=== PATIENT | female | born 2000 | race Caucasian/White ===

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

== ENCOUNTER → 2021-10-09 | Outpatient (CLI) | payer OTHER ==
--- NOTE | 2021-10-09 09:35 | US ---
EXAMINATION TYPE: Transabdominal DATE OF EXAM: 10/09/2021 9:28 AM COMPARISON: NONE CLINICAL HISTORY: R10.9 ABD PAIN. Patient just found out she was today. EMS transfer from [facility] with patient being transferred back. EXAM PERFORMED: Transvaginal (TV) and Transabdominal (TA) EXAM MEASUREMENTS: GESTATIONAL AGE / DATING Physician Established: Not yet established Dates by LMP: LMP unknown Dates by First Scan: No previous this is first scan Dates by Current Scan for: ( 6 weeks/0 days) EDC: 06/04/2022 MATERNAL ANATOMY Uterus: 10.0 x 6.1 x 4.6 cm Right Ovary: 3.3 x 2.3 x 2.0 cm Left Ovary: 2.8 x 1.5 x 1.8 cm Post CDS / Adnexa: no free fluid Presence of free fluid: no Presence of corpus luteal cyst: no Presence of subchorionic bleed: no GESTATION / SURVEY CRL: 0.4 cm (6 weeks/0 days) MSD: seen, not measured Yolk Sac (normal less than 6mm): 1.4 mm Heart Rate: 114 bpm Rhythm: Normal IUP: Viable IUP Date of LMP: Unknown, [id number] Beta HcG (if available): Not available at this time Single live IUP measured 6 weeks 0 days. IMPRESSION: Viable intrauterine 6 weeks 0 days heart rate of 114 bpm.
== END | disposition home or self-care (01) ==
LOC: RADUSWWP 08:55
PROVIDERS: ATTEND Emergency Medicine
DX: O26.891 Other specified pregnancy related conditions, first trimester (principal); R10.9 Unspecified abdominal pain; Z3A.01 Less than 8 weeks gestation of pregnancy
CPT/HCPCS: 76801; 76817

== ENCOUNTER 2022-03-10 10:25 | Emergency (ER) | payer OTHER ==
[2022-03-10 10:39] VITALS: BP 107/67; PULSE 96; RESP 18; TEMP 98
--- NOTE | 2022-03-10 11:08 | ED ---
General Adult HPI - General Chief complaint: Skin/Abscess/Foreign Body Stated complaint: jaw swelling Time Seen by Provider: 03/10/22 10:53 Source: patient, family Mode of arrival: ambulatory Limitations: no limitations - History of Present Illness Initial comments: Dictation was produced using [employer] dictation software. please excuse any grammatical, word or spelling errors. Chief Complaint: 22-year-old female presents with 1-2 days of left- sided oral pain History of Present Illness: Patient's 22-year-old female presents emergency department for oral pain. Patient states that it she has pain to her lower oral jaw on the left side. Patient denies any trouble swallowing. No fever or chills or night sweats. Family thinks that it might be a ingrowing wisdom tooth. No constitutional symptoms. The ROS documented in this emergency department record has been reviewed and confirmed by me. Those systems with pertinent positive or negative responses have been documented in the HPI. All other systems are other negative and/or noncontributory. PHYSICAL EXAM: General Impression: Alert and oriented x3, not in acute distress HEENT: Normocephalic atraumatic, extra-ocular movements intact, pupils equal and reactive to light bilaterally, mucous membranes moist. Cardiovascular: Heart regular rate and rhythm Oral exam: Good dentition, no abnormal mucosa to the buccal or gingival, posterior oropharynx is unremarkable Chest: Able to complete full sentences, no retractions, no tachypnea Musculoskeletal: Pulses present and equal in all extremities, no peripheral edema Motor: no focal deficits noted Neurological: CN II-XII grossly intact, no focal motor or sensory deficits noted Skin: Intact with no visualized rashes Psych: Normal affect and mood ED course: 22-year-old female presents emergency department for acute onset oral pain. At this point physical examination is benign. Signs upon arrival are wit hin acceptable limits. No abnormal oral exam findings to suggest obvious source of patient's oral pain. Patient prescription for antibiotics for perhaps dental pain. She is advised follow-up with dentist. Critical Care: no Critical Care time: n/a - Related Data Previous Rx's Medication Instructions Recorded Amoxic-Pot Clav 875-125Mg 1 tab PO BID 10 Days #20 tab 03/10/22 [Augmentin 875-125] Allergies Allergy/AdvReac Type Severity Reaction Status Date / Time Latex, Natural Rubber Allergy Unknown Verified 03/10/22 10:39 Review of Systems ROS Statement: Those systems with pertinent positive or pertinent negative responses have been documented in the HPI. ROS Other: All systems not noted in ROS Statement are negative. Past Medical History Additional Past Medical History / Comment(s): spina difada History of Any Multi-Drug Resistant Organisms: None Reported Past Surgical History: Tonsillectomy Past Psychological History: No Psychological Hx Reported Smoking Status: Never smoker Past Alcohol Use History: None Reported, Occasional Past Drug Use History: None Reported General Exam Limitations: no limitations Course Vital Signs 03/10/22 10:36 Temperature 98 F Pulse Rate 96 Respiratory 18 Rate Blood Pressure 107/67 O2 Sat by Pulse 99 Oximetry Disposition Clinical Impression: Oral pain Disposition: HOME SELF-CARE Condition: Good Instructions (If sedation given, give patient instructions): Amoxicillin/Clavulanate Potassium (By mouth) Additional Instructions: Follow-up with dentist for oral pain. Prescriptions: Amoxic-Pot Clav 875-125Mg [Augmentin 875-125] 1 tab PO BID 10 Days #20 tab Is patient prescribed a controlled substance at d/c from ED?: No Referrals: None,Stated [Primary Care Provider] - 1-2 days Time of Disposition: 11:08
== END 2022-03-10 11:22 | disposition home or self-care (01) ==
LOC: EC 10:25
DX: O99.611 Diseases of the digestive system complicating pregnancy, first trimester (principal); K08.89 Other specified disorders of teeth and supporting structures; Z91.040 Latex allergy status; Z3A.00 Weeks of gestation of pregnancy not specified
CPT/HCPCS: 99282

== ENCOUNTER 2022-07-05 13:49 | Emergency (ER) | payer OTHER ==
[2022-07-05 14:28] LABS: Appearance,Urine Clear (Clear); Bilirubin,Urine Negative (Negative); Blood,Urine Negative (Negative); Color,Urine Light Yellow; Glucose,Urine (UA) Negative (Negative); Ketones,Urine Negative (Negative); Leukocyte Esterase,Urine Negative (Negative); Nitrite,Urine Negative (Negative); PH, Urine 5.5 (5.0-8.0); Protein,Urine Negative (Negative); Specific Gravity,Urine 1.011 (1.001-1.035); Urobilinogen,Urine <2.0 mg/dL (<2.0)
[2022-07-05] MEDS ORDERED: ACETAMINOPHEN TAB 500 MG TAB PO STA (14:50)
--- NOTE | 2022-07-05 14:55 | ED ---
Female Urogenital HPI - General Chief complaint: Urogenital Stated complaint: UTI Time Seen by Provider: 07/05/22 14:05 Source: patient Mode of arrival: ambulatory Limitations: no limitations - History of Present Illness Initial comments: [id number] female who presents to the emergency department for burning with urination. Started 3 days ago. Patient reports history of UTI states this feels similar. She denies fever, chills, back pain, abdominal pain nausea, vomiting, vaginal discharge. No concern for sexually transmitted infections. Patient is 3 weeks . She had a vaginal delivery with Dr. Walker. She did have a vaginal tear otherwise no complications. She has been using a topical in reliever for this pain which she was given in the hospital. - Related Data Previous Rx's Medication Instructions Recorded Ibuprofen [Motrin] 800 mg PO Q8HR PRN #30 tab 07/05/22 Phenazopyridine [Pyridium] 200 mg PO TID PRN #6 tablet 07/05/22 Allergies Allergy/AdvReac Type Severity Reaction Status Date / Time Latex, Natural Rubber Allergy Unknown Verified 07/05/22 14:36 smoke Allergy Dyspnea Uncoded 07/05/22 14:36 Review of Systems ROS Statement: Those systems with pertinent positive or pertinent negative responses have been documented in the HPI. ROS Other: All systems not noted in ROS Statement are negative. Past Medical History Additional Past Medical History / Comment(s): spinal bifida History of Any Multi-Drug Resistant Organisms: None Reported Past Surgical History: Tonsillectomy Past Anesthesia/Blood Transfusion Reactions: No Reported Reaction Past Psychological History: No Psychological Hx Reported Smoking Status: Never smoker Past Alcohol Use History: None Reported Past Drug Use History: None Reported General Exam Limitations: no limitations General appearance: alert, in no apparent distress Head exam: Present: atraumatic, normocephalic, normal inspection Respiratory exam: Present: normal lung sounds bilaterally. Absent: respiratory distress, wheezes, rales, rhonchi, stridor Cardiovascular Exam: Present: regular rate, normal rhythm, normal heart sounds. Absent: systolic murmur, diastolic murmur, rubs, gallop, clicks External exam: Present: other (erythema and swelling to urethra) Neurological exam: Present: alert, oriented X3, CN II-XII intact Psychiatric exam: Present: normal affect, normal mood Skin exam: Present: warm, dry, intact, normal color. Absent: rash Course Vital Signs 07/05/22 07/05/22 13:58 15:20 Temperature 97.8 F 98.4 F Pulse Rate 92 72 Respiratory 20 14 Rate Blood Pressure 119/71 112/68 O2 Sat by Pulse 99 99 Oximetry Medical Decision Making - Medical Decision Making Was pt. sent in by a medical professional or institution ([facility], OSTEOLOGIST, urgent care, hospital, or intermediate...) When possible be specific @ -No Did you speak to anyone other than the patient for history (EMS, parent, family, police, friend...)? What history was obtained from this source @ -No Did you review nursing and triage notes (agree or disagree)? Why? @ -I reviewed and agree with nursing and triage notes Were old charts reviewed (outside hosp., previous admission, EMS record, old EKG, old radiological studies, urgent care reports/EKG's, intermediate records)? Report findings @ -No old charts were reviewed Differential Diagnosis (chest pain, altered mental status, abdominal pain women, abdominal pain men, vaginal bleeding, weakness, fever, dyspnea, syncope, headache, dizziness, GI bleed, back pain, seizure, CVA, palpatations, mental health)? @ Urinary tract infection, UTI, urethritis EKG interpreted by me (3pts min.). @ -As above X-rays interpreted by me (1pt min.). @ -None done CT interpreted by me (1pt min.). @ -None done U/S interpreted by me (1pt. min.). @ -None done What testing was considered but not performed or refused? (CT, X-rays, U/S, labs)? Why? @ -None What meds were considered but not given or refused? Why? @ -None Did you discuss the management of the patient with other professionals (professionals i.e. [facility], OSTEOLOGIST, lab, RT, psych nurse, social media manager, livery car driver, teacher, associate loan officer, housing case manager)? Give summary @ -No Was smoking cessation discussed for >3mins.? @ -No Was critical care preformed (if so, how long)? @ -No Were there social determinants of health that impacted care today? How? (Homelessness, low income, unemployed, alcoholism, drug addiction, transportation, low edu. Level, literacy, decrease access to med. care, nursing home, rehab)? @ -No Was there de-escalation of care discussed even if they declined (Discuss DNR or withdrawal of care, Hospice)? DNR status @ -No What co-morbidities impacted this encounter? (DM, HTN, Smoking, COPD, CAD, Cancer, CVA, ARF, Chemo, Hep., AIDS, mental health diagnosis, sleep apnea, morbid obesity)? @ -None Was patient admitted / discharged? Hospital course, mention meds given and route, prescriptions, significant lab abnormalities, going to OR and other pertinent info. @ -Patient presenting with dysuria. Urinalysis does not indicate any infection. Patient does have swelling and erythema to the urethra. There is concern for urethritis. Patient declines any STI testing. No systemic symptoms. Symptoms possibly related to irritation urethritis. Patient will stop using topical pain reliever. Discussed symptomatic management at home. Patient to follow-up with Dr. Crump Undiagnosed new problem with uncertain prognosis? @ -No Drug Therapy requiring intensive monitoring for toxicity (Heparin, Nitro, Insulin, Cardizem)? @ -[No] Were any procedures done? @ -[No] Diagnosis/symptom? @ -urethritis Acute, or Chronic, or Acute on Chronic? @ -acute Uncomplicated (without systemic symptoms) or Complicated (systemic symptoms)? @ -uncomplicated Side effects of treatment? @ -[No] Exacerbation, Progression, or Severe Exacerbation? @ -[No] Poses a threat to life or bodily function? How? (Chest pain, [place], IA, pneumonia, PE, COPD, DKA, ARF, appy, cholecystitis, CVA, Diverticulitis, Homicidal, Suicidal, threat to staff... and all critical care pts) @ -[No] Dr. Echevarria is my attenind - Lab Data Lab Results 07/05/22 Range/Units 14:06 Urine Color Light Yellow Urine Appearance Clear (Clear) Urine pH 5.5 (5.0-8.0) Ur Specific [place] 1.011 (1.001-1.035) Urine Protein Negative (Negative) Urine Glucose (UA) Negative (Negative) Urine Ketones Negative (Negative) Urine Blood Negative (Negative) Urine Nitrite Negative (Negative) Urine Bilirubin Negative (Negative) Urine Urobilinogen <2.0 (<2.0) mg/dL Ur Leukocyte Esterase Negative (Negative) Disposition Clinical Impression: Urethritis Disposition: HOME SELF-CARE Condition: Good Instructions (If sedation given, give patient instructions): Dysuria (ED) Additional Instructions: Take medication as directed. Avoid using chemicals that may irritate your urethra. Sitz baths in warm water 2-3 times a day may help symptoms. Follow-up with Dr. Walker in one to 2 days. Return to emergency department if you experience new, concerning, or worsening symptoms. Prescriptions: Ibuprofen [Motrin] 800 mg PO Q8HR PRN #30 tab PRN Reason: Pain Phenazopyridine [Pyridium] 200 mg PO TID PRN #6 tablet PRN Reason: Pain Is patient prescribed a controlled substance at d/c from ED?: No Referrals: None,Stated [Primary Care Provider] - 1-2 days
[2022-07-05] MEDS ORDERED: PHENAZOPYRIDINE 200 MG TAB PO ONE (15:05)
[2022-07-05 15:25] VITALS: BP 112/68; PULSE 72; RESP 14; TEMP 98.4
== END 2022-07-05 15:26 | disposition home or self-care (01) ==
LOC: EC 13:49
DX: N34.2 Other urethritis (principal); Z91.040 Latex allergy status; Z88.8 Allergy status to other drugs, medicaments and biological substances
CPT/HCPCS: 81003; 99283

== ENCOUNTER 2022-07-18 12:54 | Emergency (ER) | payer OTHER ==
[2022-07-18 13:06] VITALS: BP 111/69
[2022-07-18 14:22] LABS: Appearance,Urine Cloudy (Clear); Bacteria,Urine Rare /hpf; Bilirubin,Urine Negative (Negative); Blood,Urine Negative (Negative); Color,Urine Dark Yellow; Glucose,Urine (UA) Negative (Negative); Ketones,Urine Negative (Negative); Leukocyte Esterase,Urine Large (Negative); Mucus,Urine Rare /hpf; Nitrite,Urine Negative (Negative); PH, Urine 5.5 (5.0-8.0); Protein,Urine Negative (Negative); RBC,Urine 4 /hpf (0-5); Specific Gravity,Urine 1.015 (1.001-1.035); Squamous Epithelial Cell,Urine 6 /hpf (0-4); Urobilinogen,Urine <2.0 mg/dL (<2.0); WBC,Urine 35 /hpf (0-5)
--- NOTE | 2022-07-18 14:42 | ED ---
General Adult HPI - General Chief complaint: Back Pain/Injury Stated complaint: Back Pain Time Seen by Provider: 07/18/22 13:17 Source: patient, RN notes reviewed Mode of arrival: ambulatory Limitations: no limitations - History of Present Illness Initial comments: 22 year old female with no significant past medical history presents to the emergency department with dysuria x 2 days. Patient has been taking Azo with some mild relief of her symptoms. She denies any fevers, chills, nausea, vomiting, flank pain. She denies any vaginal bleeding, she is reporting some low back pain associated with the symptoms but she has been taking Motrin for. - Related Data Previous Rx's Medication Instructions Recorded Ibuprofen [Motrin] 800 mg PO Q8HR PRN #30 tab 07/05/22 Phenazopyridine [Pyridium] 200 mg PO TID PRN #6 tablet 07/05/22 Cephalexin [Keflex] 500 mg PO Q6HR #40 cap 07/18/22 Allergies Allergy/AdvReac Type Severity Reaction Status Date / Time Latex, Natural Rubber Allergy Unknown Verified 07/18/22 13:06 smoke Allergy Dyspnea Uncoded 07/18/22 13:06 Review of Systems ROS Statement: Those systems with pertinent positive or pertinent negative responses have been documented in the HPI. ROS Other: All systems not noted in ROS Statement are negative. Past Medical History Additional Past Medical History / Comment(s): spinal bifida, History of Any Multi-Drug Resistant Organisms: None Reported Past Surgical History: Tonsillectomy Past Anesthesia/Blood Transfusion Reactions: No Reported Reaction Past Psychological History: No Psychological Hx Reported Smoking Status: Never smoker Past Alcohol Use History: Occasional Past Drug Use History: None Reported General Exam Limitations: no limitations General appearance: alert, in no apparent distress Course Vital Signs 07/18/22 07/18/22 13:03 15:18 Temperature 97.5 F L 97.9 F Pulse Rate 73 82 Respiratory 18 14 Rate Blood Pressure 111/69 O2 Sat by Pulse 97 Oximetry Medical Decision Making - Medical Decision Making Was pt. sent in by a medical professional or institution (, PA, TOURING PRODUCTION MANAGER, urgent care, hospital, or detention...) When possible be specific @ -[No] Did you speak to anyone other than the patient for history (EMS, parent, family, police, friend...)? What history was obtained from this source @ -[No] Did you review nursing and triage notes (agree or disagree)? Why? @ -[I reviewed and agree with nursing and triage notes] Were old charts reviewed (outside hosp., previous admission, EMS record, old EKG, old radiological studies, urgent care reports/EKG's, detention records)? Report findings @ -[No old charts were reviewed] Differential Diagnosis (chest pain, altered mental status, abdominal pain women, abdominal pain men, vaginal bleeding, weakness, fever, dyspnea, syncope, headache, dizziness, GI bleed, back pain, seizure, CVA, palpatations, mental health, musculoskeletal)? @ -[not applicable] EKG interpreted by me (3pts min.). @ -[As above] X-rays interpreted by me (1pt min.). @ -[None done] CT interpreted by me (1pt min.). @ -[None done] U/S interpreted by me (1pt. min.). @ -[None done] What testing was considered but not performed or refused? (CT, X-rays, U/S, labs)? Why? @ -[None] What meds were considered but not given or refused? Why? @ -[None] Did you discuss the management of the patient with other professionals (professionals i.e. , PA, TOURING PRODUCTION MANAGER, lab, RT, psych nurse, social sciences professor, lockmaker, teacher, light armored reconnaissance officer, dependency case manager)? Give summary @ -[No] Was smoking cessation discussed for >3mins.? @ -[No] Was critical care preformed (if so, how long)? @ -[No] Were there social determinants of health that impacted care today? How? (Homelessness, low income, unemployed, alcoholism, drug addiction, transportation, low edu. Level, literacy, decrease access to med. care, skilled nursing, rehab)? @ -[No] Was there de-escalation of care discussed even if they declined (Discuss DNR or withdrawal of care, Hospice)? DNR status @ -[No] What co-morbidities impacted this encounter? (DM, HTN, Smoking, COPD, CAD, Cancer, CVA, ARF, Chemo, Hep., AIDS, mental health diagnosis, sleep apnea, morbid obesity)? @ -[None] Was patient admitted / discharged? Hospital course, mention meds given and route, prescriptions, significant lab abnormalities, going to OR and other pertinent info. @ -Discharged. This is a 22-year-old female presents to the emergency department with UTI. Patient had a thorough history and physical exam performed heart rate regular rate and rhythm, lungs are clear to auscultation bilaterally. Abdomen is soft and non-tender. There are no focal deficits noted upon exam. UA consistent with UTI. I discussed at length with the patient who verbalized understanding and is requesting discharge. Return precautions were discussed. Patient discharged in stable condition. Case discussed with Dr. Ambrocio who agrees with plan of care Undiagnosed new problem with uncertain prognosis? @ -[No] Drug Therapy requiring intensive monitoring for toxicity (Heparin, Nitro, Insulin, Cardizem)? @ -[No] Were any procedures done? @ -[No] Diagnosis/symptom? @ -urinary tract infection Acute, or Chronic, or Acute on Chronic? @ -acute Uncomplicated (without systemic symptoms) or Complicated (systemic symptoms)? @ -uncomplicated Side effects of treatment? @ -[No] Exacerbation, Progression, or Severe Exacerbation? @ -[No] Poses a threat to life or bodily function? How? (Chest pain, [place], [place], pneumonia, PE, COPD, DKA, ARF, appy, cholecystitis, CVA, Diverticulitis, Homicidal, Suicidal, threat to staff... and all critical care pts) @ -low likelihood - Lab Data Lab Results 07/18/22 Range/Units 13:45 Urine Color Dark Yellow Urine Appearance Cloudy H (Clear) Urine pH 5.5 (5.0-8.0) Ur Specific [place] 1.015 (1.001-1.035) Urine Protein Negative (Negative) Urine Glucose (UA) Negative (Negative) Urine Ketones Negative (Negative) Urine Blood Negative (Negative) Urine Nitrite Negative (Negative) Urine Bilirubin Negative (Negative) Urine Urobilinogen <2.0 (<2.0) mg/dL Ur Leukocyte Esterase Large H (Negative) Urine RBC 4 (0-5) /hpf Urine WBC 35 H (0-5) /hpf Ur Squamous Epith Cells 6 H (0-4) /hpf Urine Bacteria Rare H (None) /hpf Urine Mucus Rare H (None) /hpf Disposition Clinical Impression: Urinary tract infection Disposition: HOME SELF-CARE Condition: Stable Instructions (If sedation given, give patient instructions): Urinary Tract Infection in Women (ED) Additional Instructions: Please return to the nearest emergency department if symptoms worsen or persist Prescriptions: Cephalexin [Keflex] 500 mg PO Q6HR #40 cap Is patient prescribed a controlled substance at d/c from ED?: No Referrals: None,Stated [Primary Care Provider] - 1-2 days Time of Disposition: 14:40
[2022-07-18 15:19] VITALS: PULSE 82; RESP 14; TEMP 97.9
== END 2022-07-18 15:29 | disposition home or self-care (01) ==
LOC: EC 12:54
DX: N39.0 Urinary tract infection, site not specified (principal); Z91.040 Latex allergy status; Z91.048 Other nonmedicinal substance allergy status
CPT/HCPCS: 81001; 87086; 99283

== ENCOUNTER 2023-01-26 19:19 | Emergency (ER) | payer OTHER ==
[2023-01-26 20:28] LABS: Appearance,Urine Clear (Clear); Bilirubin,Urine Negative (Negative); Blood,Urine Negative (Negative); Color,Urine Yellow; Glucose,Urine (UA) Negative (Negative); Ketones,Urine Negative (Negative); Leukocyte Esterase,Urine Moderate (Negative); Mucus,Urine Few /hpf; Nitrite,Urine Negative (Negative); PH, Urine 5.5 (5.0-8.0); Protein,Urine Trace (Negative); RBC,Urine 10 /hpf (0-5); Specific Gravity,Urine 1.026 (1.001-1.035); Squamous Epithelial Cell,Urine 2 /hpf (0-4); WBC,Urine 32 /hpf (0-5)
[2023-01-26] MEDS ORDERED: SULFAMETHOX-TMP 800-160MG 1 EACH TAB PO STA (20:49)
[2023-01-26] MEDS ORDERED: PHENAZOPYRIDINE 100 MG TAB PO STA (20:49)
--- NOTE | 2023-01-26 20:49 | ED ---
Female Urogenital HPI - General Chief complaint: Urogenital Stated complaint: Uti Time Seen by Provider: 01/26/23 19:44 Source: patient Mode of arrival: ambulatory Limitations: no limitations - History of Present Illness Initial comments: 23-year-old female presenting with chief complaint of dysuria. Patient has been having dysuria as well as urgency and frequency for the last 4 days. She was seen at a different facility 3 days ago and started on Macrobid, but she states that her symptoms have only worsened. She admits to suprapubic pressure. No flank pain, fever, chills, nausea, vomiting, vaginal discharge. She denies any concern for STI's. - Related Data Previous Rx's Medication Instructions Recorded Ibuprofen [Motrin] 800 mg PO Q8HR PRN #30 tab 07/05/22 Phenazopyridine [Pyridium] 200 mg PO TID PRN #6 tablet 07/05/22 Cephalexin [Keflex] 500 mg PO Q6HR #40 cap 07/18/22 Phenazopyridine [Pyridium] 100 mg PO TID #6 tablet 01/26/23 Sulfamethox-Tmp 800-160Mg [Bactrim 1 tab PO Q12HR 7 Days #14 tab 01/26/23 DS 800-160 mg] Allergies Allergy/AdvReac Type Severity Reaction Status Date / Time Latex, Natural Rubber Allergy Unknown Verified 01/26/23 19:34 smoke Allergy Dyspnea Uncoded 01/26/23 19:34 Review of Systems ROS Statement: Those systems with pertinent positive or pertinent negative responses have been documented in the HPI. ROS Other: All systems not noted in ROS Statement are negative. Past Medical History Additional Past Medical History / Comment(s): spinal bifida, History of Any Multi-Drug Resistant Organisms: None Reported Past Surgical History: Tonsillectomy Past Anesthesia/Blood Transfusion Reactions: No Reported Reaction Past Psychological History: No Psychological Hx Reported Smoking Status: Never smoker Past Alcohol Use History: Occasional Past Drug Use History: None Reported General Exam Limitations: no limitations General appearance: alert, in no apparent distress Head exam: Present: atraumatic, normocephalic, normal inspection Eye exam: Present: normal appearance, EOMI Neck exam: Present: normal inspection, full ROM Respiratory exam: Absent: respiratory distress GI/Abdominal exam: Present: soft, tenderness (Suprapubic). Absent: distended, guarding, rebound, rigid Neurological exam: Present: alert, oriented X3 Psychiatric exam: Present: normal affect, normal mood Skin exam: Present: warm, dry, intact, normal color. Absent: rash Course Vital Signs 01/26/23 01/26/23 19:31 21:17 Temperature 98.4 F 98.7 F Pulse Rate 89 84 Respiratory 18 16 Rate Blood Pressure 143/91 126/74 O2 Sat by Pulse 99 100 Oximetry Medical Decision Making - Medical Decision Making Was pt. sent in by a medical professional or institution (, EPI, EXTRACTOR OPERATOR HELPER, urgent care, hospital, or senior living...) When possible be specific @ -No Did you speak to anyone other than the patient for history (EMS, parent, family, police, friend...)? What history was obtained from this source @ -No Did you review nursing and triage notes (agree or disagree)? Why? @ -I reviewed and agree with nursing and triage notes Were old charts reviewed (outside hosp., previous admission, EMS record, old EKG, old radiological studies, urgent care reports/EKG's, senior living records)? Report findings @ -No old charts were reviewed Differential Diagnosis (chest pain, altered mental status, abdominal pain women, abdominal pain men, vaginal bleeding, weakness, fever, dyspnea, syncope, headache, dizziness, GI bleed, back pain, seizure, CVA, palpatations, mental health, musculoskeletal)? @ -Differential includes UTI, STI, candidiasis, this is not an all inclusive list EKG interpreted by me (3pts min.). @ -As above X-rays interpreted by me (1pt min.). @ -None done CT interpreted by me (1pt min.). @ -None done U/S interpreted by me (1pt. min.). @ -None done What testing was considered but not performed or refused? (CT, X-rays, U/S, labs)? Why? @ -None What meds were considered but not given or refused? Why? @ -None Did you discuss the management of the patient with other professionals (professionals i.e. EPI Leach, EXTRACTOR OPERATOR HELPER, lab, RT, psych nurse, social media analyst, supervisor customer services, teacher, retail loan officer, outsole caser)? Give summary @ -No Was smoking cessation discussed for >3mins.? @ -No Was critical care preformed (if so, how long)? @ -No Were there social determinants of health that impacted care today? How? (Homelessness, low income, unemployed, alcoholism, drug addiction, transportation, low edu. Level, literacy, decrease access to med. care, detention, rehab)? @ -No Was there de-escalation of care discussed even if they declined (Discuss DNR or withdrawal of care, Hospice)? DNR status @ -No What co-morbidities impacted this encounter? (DM, HTN, Smoking, COPD, CAD, Cancer, CVA, ARF, Chemo, Hep., AIDS, mental health diagnosis, sleep apnea, morbid obesity)? @ -None Was patient admitted / discharged? Hospital course, mention meds given and route, prescriptions, significant lab abnormalities, going to OR and other pertinent info. @ -23-year-old female presenting with chief complaint of UTI symptoms. She was started on Macrobid 3 days ago but her symptoms have continued to worsen. Phy sical exam is conducted. Urine shows 10 rbc's and 32 WBCs. Negative hCG. Patient will be switched from Macrobid to Bactrim. Urine is sent for culture. Patient is instructed to follow-up with her PCP. Provided with a prescription for Pyridium. Follow-up with PCP. Report back to ER with any new or worsening symptoms. Discussed return parameters and answered all questions. Patient conveyed verbal understanding and agreed to the plan. I discussed this case in detail with my attending Dr. Lopez Undiagnosed new problem with uncertain prognosis? @ -No Drug Therapy requiring intensive monitoring for toxicity (Heparin, Nitro, Insulin, Cardizem)? @ -No Were any procedures done? @ -No Diagnosis/symptom? @ -UTI Acute, or Chronic, or Acute on Chronic? @ -Acute Uncomplicated (without systemic symptoms) or Complicated (systemic symptoms)? @ -Uncomplicated Side effects of treatment? @ -No Exacerbation, Progression, or Severe Exacerbation? @ -No Poses a threat to life or bodily function? How? (Chest pain, [place], [place], pneumonia, PE, COPD, DKA, ARF, appy, cholecystitis, CVA, Diverticulitis, Homicidal, Suicidal, threat to staff... and all critical care pts) @ -No - Lab Data Lab Results 01/26/23 01/26/23 Range/Units 20:05 20:05 Urine Color Yellow Urine Appearance Clear (Clear) Urine pH 5.5 (5.0-8.0) Ur Specific [place] 1.026 (1.001-1.035) Urine Protein Trace H (Negative) Urine Glucose (UA) Negative (Negative) Urine Ketones Negative (Negative) Urine Blood Negative (Negative) Urine Nitrite Negative (Negative) Urine Bilirubin Negative (Negative) Urine Urobilinogen 4.0 (<2.0) mg/dL Ur Leukocyte Esterase Moderate H (Negative) Urine RBC 10 H (0-5) /hpf Urine WBC 32 H (0-5) /hpf Ur Squamous Epith Cells 2 (0-4) /hpf Urine Mucus Few H (None) /hpf Urine HCG, Qual Not Detected (Not Detectd) Disposition Clinical Impression: Urinary tract infection Disposition: HOME SELF-CARE Condition: Good Instructions (If sedation given, give patient instructions): Urinary Tract Infection in Women (ED) Additional Instructions: Follow-up with PCP. Report back to ER with any new or worsening symptoms. Prescriptions: Sulfamethox-Tmp 800-160Mg [Bactrim DS 800-160 mg] 1 tab PO Q12HR 7 Days #14 tab Phenazopyridine [Pyridium] 100 mg PO TID #6 tablet Is patient prescribed a controlled substance at d/c from ED?: No Referrals: None,Stated [Primary Care Provider] - 1-2 days Time of Disposition: 20:49
[2023-01-26 21:20] VITALS: BP 126/74; PULSE 84; RESP 16; TEMP 98.7
== END 2023-01-26 21:19 | disposition home or self-care (01) ==
LOC: EC 19:19
DX: N39.0 Urinary tract infection, site not specified (principal)
CPT/HCPCS: 81001; 81025; 87086; 99283

== ENCOUNTER → 2023-02-11 | Outpatient (CLI) | payer OTHER ==
--- NOTE | 2023-02-11 13:06 | XR ---
EXAMINATION TYPE: XR spine complete AP and Lat DATE OF EXAM: 02/11/2023 COMPARISON: NONE HISTORY: Pain TECHNIQUE: Three views of the cervical spine are submitted. FINDINGS: The cervical spine is visualized in its entirety from C1 thru the top of T1 level. It is s atisfactory in alignment without evidence of acute fracture or dislocation. The pre-vertebral soft t issue appears within normal limits. The C1-C2 articulation is unremarkable on the open mouth view. Disc spaces are well preserved. IMPRESSION: No acute fracture or dislocation is seen in the cervical spine. Disc spaces are well pre served. THORACIC SPINE 2 VIEWS. TECHNIQUE: Frontal, lateral, and swimmer's view of thoracic spine are obtained. COMPARISON: None. FINDINGS: Thoracic spine show satisfactory alignment without evidence of acute fracture or dislocatio n. Vertebral body heights are preserved. Disc spaces are well preserved. Visualized ribs are unre markable. IMPRESSION: No acute fracture or dislocation is seen in the thoracic spine. Disc spaces are well pres erved. LUMBAR SPINE X-RAY: TECHNIQUE: Three views of the lumbar spine are submitted. COMPARISON: None. FINDINGS: There are 5 lumbar type vertebral bodies identified. The lumbar spine shows satisfactory alignment without evidence of acute fracture or dislocation. Vertebral body heights are within normal limits. Disc spaces are well preserved. The overlying soft tissue appears unremarkable. IMPRESSION: No acute fracture or dislocation is seen in the lumbar spine. Disc spaces are well pres erved.ICD 10 NO FRACTURE, INITIAL EVALUATION
== END | disposition home or self-care (01) ==
LOC: RADXRMAIN 12:19
PROVIDERS: ATTEND Family Medicine
DX: M54.50 Low back pain, unspecified (principal); R20.2 Paresthesia of skin
CPT/HCPCS: 72082

== ENCOUNTER → 2023-04-08 | Outpatient (CLI) | payer OTHER ==
--- NOTE | 2023-04-08 17:32 | XR ---
EXAMINATION TYPE: XR ankle limited LT DATE OF EXAM: 04/08/2023 COMPARISON: NONE HISTORY: 23-year-old female Z1 8.10 TECHNIQUE: 2 views FINDINGS: There is a retained BB along the posterior cortical margin of the distal fibular shaft. Ank le mortise is congruent with the distal fibula overlap. Talar dome is intact. No acute fracture, subl uxation, dislocation. IMPRESSION: A metal BB retained along the posterior cortical margin of the distal fibular shaft. No acute osseous abnormality seen.
== END | disposition home or self-care (01) ==
LOC: RADXRMAIN 14:41
PROVIDERS: ATTEND Family Medicine
DX: Z18.10 Retained metal fragments, unspecified (principal)

== ENCOUNTER → 2023-04-09 | Outpatient (CLI) | payer OTHER ==
--- NOTE | 2023-04-10 09:46 | MR ---
EXAMINATION TYPE: MR lumbar spine wo/w con DATE OF EXAM: 04/09/2023 6:17 PM CLINICAL INDICATION:Female, 23 years old with history of R20.2; PHH, Low back pain into left side x9 months COMPARISON: None TECHNIQUE: Multi planar, multi sequence imaging was performed utilizing: T1-weighted, T2-weighted, a nd turbo inversion recovery imaging of the lumbar spine. IV Contrast: 7.5 cc Gadavist. (None if empty) FINDINGS: Alignment: The lumbar vertebral bodies have preserved heights and alignment. Cord: The conus medullaris and the distal spinal cord appear unremarkable with regards to their signa l intensity and morphology. Bones/Discs: Minimal disc degeneration changes worse at L4-L5 with disc space narrowing, and osteophy luda. Intervertebral disc signal is maintained. T12-L1: No evidence of significant spinal canal stenosis or neural foraminal stenosis. L1-L2: No evidence of significant spinal canal stenosis or neural foraminal stenosis. L2-L3: No evidence of significant spinal canal stenosis or neural foraminal stenosis. L3-L4: No evidence of significant spinal canal stenosis or neural foraminal stenosis. L4-L5: Posterior annular fissure. No evidence of significant spinal canal stenosis or neural foramina l stenosis. L5-S1: The disc is rounded posterior morphology without significant spinal canal stenosis. Facet join t arthropathy with mild bilateral neural foraminal stenosis. No significant spinal canal or neural foraminal stenosis in the remainder of the visualized levels. Other findings: None. IMPRESSION: No definitive evidence of disc herniation or significant spinal canal stenosis. 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
== END | disposition home or self-care (01) ==
LOC: RADMRIMAIN 16:53
PROVIDERS: ATTEND Family Medicine
DX: M51.36 Other intervertebral disc degeneration, lumbar region (principal); M47.816 Spondylosis without myelopathy or radiculopathy, lumbar region; R20.2 Paresthesia of skin
CPT/HCPCS: 72158; A9585

== ENCOUNTER 2024-04-23 22:51 | Emergency (ER) | payer OTHER ==
[2024-04-23 22:56] VITALS: TEMP 98.3
--- NOTE | 2024-04-23 23:15 | ED ---
General Adult HPI - General Chief complaint: ENT Stated complaint: Throat Pain Time Seen by Provider: 04/23/24 23:01 Source: patient, RN notes reviewed Mode of arrival: ambulatory Limitations: no limitations - History of Present Illness Initial comments: This is a 24-year-old female no significant medical history resents emergency department chief complaint of what she describes as a tingling sensation of her throat that has been intermittent over the past 2 weeks. Patient states that she has experienced this sensation approximately 3 times with the most recent being this evening. Patient states that when she begins to experience this sensation it worsens where she feels short of breath. She denies tongue swelling, lip swelling, urticaria. She denies recent new medications, trying new foods. She denies chest pain, abdominal pain, nausea or vomiting, fevers or chills, cough. - Related Data Previous Rx's Medication Instructions Recorded Ibuprofen [Motrin] 800 mg PO Q8HR PRN #30 tab 07/05/22 Phenazopyridine [Pyridium] 200 mg PO TID PRN #6 tablet 07/05/22 Cephalexin [Keflex] 500 mg PO Q6HR #40 cap 07/18/22 Phenazopyridine [Pyridium] 100 mg PO TID #6 tablet 01/26/23 Sulfamethox-Tmp 800-160Mg [Bactrim 1 tab PO Q12HR 7 Days #14 tab 01/26/23 DS 800-160 mg] Allergies Allergy/AdvReac Type Severity Reaction Status Date / Time Latex, Natural Rubber Allergy Unknown Verified 04/23/24 22:56 smoke Allergy Dyspnea Uncoded 04/23/24 22:56 Review of Systems ROS Statement: Those systems with pertinent positive or pertinent negative responses have been documented in the HPI. ROS Other: All systems not noted in ROS Statement are negative. Past Medical History Additional Past Medical History / Comment(s): spinal bifida, History of Any Multi-Drug Resistant Organisms: None Reported Past Surgical History: Tonsillectomy Past Anesthesia/Blood Transfusion Reactions: No Reported Reaction Past Psychological History: No Psychological Hx Reported Smoking Status: Never smoker Past Alcohol Use History: Occasional Past Drug Use History: None Reported General Exam Limitations: no limitations ENT exam: Present: normal exam, mucous membranes moist Neck exam: Present: normal inspection. Absent: tenderness, meningismus, lymphadenopathy Respiratory exam: Present: normal lung sounds bilaterally. Absent: respiratory distress, wheezes, rales, rhonchi, stridor Cardiovascular Exam: Present: regular rate, normal rhythm, normal heart sounds. Absent: systolic murmur, diastolic murmur, rubs, gallop, clicks GI/Abdominal exam: Present: soft, normal bowel sounds. Absent: distended, tenderness, guarding, rebound, rigid Psychiatric exam: Present: normal affect, normal mood Course Vital Signs 04/23/24 04/24/24 22:54 01:21 Temperature 98.3 F Pulse Rate 86 80 Respiratory 22 20 Rate Blood Pressure 119/78 109/60 O2 Sat by Pulse 98 98 Oximetry Medical Decision Making - Medical Decision Making Was pt. sent in by a medical professional or institution (EPI [facility], WAITER, urgent care, hospital, or long-term...) When possible be specific @ -No Did you speak to anyone other than the patient for history (EMS, parent, family, police, friend...)? What history was obtained from this source @ -No Did you review nursing and triage notes (agree or disagree)? Why? @ -I reviewed and agree with nursing and triage notes Were old charts reviewed (outside hosp., previous admission, EMS record, old EKG, old radiological studies, urgent care reports/EKG's, long-term records)? Report findings @ -No old charts were reviewed Differential Diagnosis (chest pain, altered mental status, abdominal pain women, abdominal pain men, vaginal bleeding, weakness, fever, dyspnea, syncope, headache, dizziness, GI bleed, back pain, seizure, CVA, palpatations, mental health, musculoskeletal)? @ -Strep throat, pharyngitis, allergic reaction, this list is not all inclusive EKG interpreted by me (3pts min.). @ -None X-rays interpreted by me (1pt min.). @ -X-ray soft tissue neck my interpretation no acute process CT interpreted by me (1pt min.). @ -None done U/S interpreted by me (1pt. min.). @ -None done What testing was considered but not performed or refused? (CT, X-rays, U/S, labs)? Why? @ -None What meds were considered but not given or refused? Why? @ -None Did you discuss the management of the patient with other professionals (professionals i.e. Dr., PA, WAITER, lab, RT, psych nurse, director social service, icu specialist, teacher, operations officer trust department, medical case worker)? Give summary @ -No Was smoking cessation discussed for >3mins.? @ -No Was critical care preformed (if so, how long)? @ -No Were there social determinants of health that impacted care today? How? (Homelessness, low income, unemployed, alcoholism, drug addiction, transportation, low edu. Level, literacy, decrease access to med. care, fdc, rehab)? @ -No Was there de-escalation of care discussed even if they declined (Discuss DNR or withdrawal of care, Hospice)? DNR status @ -No What co-morbidities impacted this encounter? (DM, HTN, Smoking, COPD, CAD, Cancer, CVA, ARF, Chemo, Hep., AIDS, mental health diagnosis, sleep apnea, morbid obesity)? @ -None Was patient admitted / discharged? Hospital course, mention meds given and route, prescriptions, significant lab abnormalities, going to OR and other pertinent info. @ -Discharge. 24-year-old female presenting with irritation to her neck. My evaluation the patient she is resting company no signs acute distress. Vitals are stable. There are no signs of difficulty breathing or stridorous breathing or retractions. All pharyngeal examination is unremarkable. No signs of tonsillar enlargement or tonsillar exudates. X-ray of soft tissue neck is unremarkable. There is no clinical concern for emergent or life-threatening pathology at this time recommend that patient continues follow-up outpatient to schedule with primary care provider for further evaluation as symptoms may be related to patient's anxiety. Case discussed with Dr. Mosley Undiagnosed new problem with uncertain prognosis? @ -No Drug Therapy requiring intensive monitoring for toxicity (Heparin, Nitro, Insulin, Cardizem)? @ -No Were any procedures done? @ -No Diagnosis/symptom? @ -throat discomfort Acute, or Chronic, or Acute on Chronic? @ -acute Uncomplicated (without systemic symptoms) or Complicated (systemic symptoms)? @ -uncomplicated Side effects of treatment? @ -No Exacerbation, Progression, or Severe Exacerbation? @ -No Poses a threat to life or bodily function? How? (Chest pain, [place], [place], pneumonia, PE, COPD, DKA, ARF, appy, cholecystitis, CVA, Diverticulitis, Homicidal, Suicidal, threat to staff... and all critical care pts) @ -No Disposition Clinical Impression: Throat discomfort Disposition: HOME SELF-CARE Condition: Good Additional Instructions: Please return to the Emergency Department if symptoms worsen or any other concerns. Is patient prescribed a controlled substance at d/c from ED?: No Referrals: Merritt Crane MD [Primary Care Provider] - 1-2 days Time of Disposition: 01:12
[2024-04-24 01:26] VITALS: BP 109/60; PULSE 80; RESP 20
--- NOTE | 2024-04-24 06:42 | XR ---
EXAMINATION TYPE: XR soft tissue neck DATE OF EXAM: 04/23/2024 COMPARISON: Two-view spine x-ray February 11, 2023 CLINICAL INDICATION: Female, 24 years old with history of intermittent pain in throat; TECHNIQUE: Two-view soft tissue neck. FINDINGS: No abnormal prevertebral soft tissue swelling. Region of Epiglottis and vallecula appears within normal limits. No suspicious narrowing of the subglottic airw ay on the frontal view. Artifact overlies the left mid cervical spine on frontal view presumed animal care service worker al to patient. IMPRESSION: Unremarkable study. [facility], , 04/24/2024 6:39 AM
== END 2024-04-24 01:21 | disposition home or self-care (01) ==
LOC: EC 22:51
DX: R09.89 Other specified symptoms and signs involving the circulatory and respiratory systems (principal); Z91.040 Latex allergy status; Z88.8 Allergy status to other drugs, medicaments and biological substances
CPT/HCPCS: 70360; 99283

== ENCOUNTER 2024-08-17 09:39 | Emergency (ER) | payer OTHER ==
--- NOTE | 2024-08-17 10:28 | ED ---
General Adult HPI - General Chief complaint: Dental/Oral Stated complaint: Infection in mouth Time Seen by Provider: 08/17/24 10:10 Source: patient, RN notes reviewed, old records reviewed Limitations: no limitations - History of Present Illness Initial comments: 24-year-old female presents emergency department complaining of acute on chronic oral infection. Does have some infections of the left jaw. States she has a hole there that currently gets infected. Endorses some left-sided facial swelling as well. Denies any difficulty in breathing. Denies any difficulty swallowing. Has no other acute complaints. No fevers or chills. Presents for further evaluation. Has not seen a dentist recently. - Related Data Previous Rx's Medication Instructions Recorded Ibuprofen [Motrin] 800 mg PO Q8HR PRN #30 tab 07/05/22 Phenazopyridine [Pyridium] 200 mg PO TID PRN #6 tablet 07/05/22 Cephalexin [Keflex] 500 mg PO Q6HR #40 cap 07/18/22 Phenazopyridine [Pyridium] 100 mg PO TID #6 tablet 01/26/23 Sulfamethox-Tmp 800-160Mg [Bactrim 1 tab PO Q12HR 7 Days #14 tab 01/26/23 DS 800-160 mg] clindamycin HCL 300 mg PO Q6HR 7 Days #28 capsule 08/17/24 Allergies Allergy/AdvReac Type Severity Reaction Status Date / Time Latex, Natural Rubber Allergy Unknown Verified 08/17/24 13:49 smoke Allergy Dyspnea Uncoded 08/17/24 13:49 Review of Systems ROS Statement: Those systems with pertinent positive or pertinent negative responses have been documented in the HPI. Review of Systems: CONST: Denies fever EYES: Denies blurry vision ENT: Denies nasal congestion C/V: Denies Chest pain RESP: Denies shortness of breath GI: Denies abdominal pain : Denies dysuria SKIN: Denies rash. MSK: Denies joint pain. NEURO: Denies headache ROS Other: All systems not noted in ROS Statement are negative. Past Medical History Additional Past Medical History / Comment(s): spinal bifida, History of Any Multi-Drug Resistant Organisms: None Reported Past Surgical History: Tonsillectomy Past Anesthesia/Blood Transfusion Reactions: No Reported Reaction Past Psychological History: No Psychological Hx Reported Smoking Status: Never smoker Past Alcohol Use History: Occasional Past Drug Use History: None Reported General Exam - General Exam Comments Initial Comments: General: Appears in no acute distress. HEAD: Normal with no signs of head trauma. EYES: EOMI. ENT: Hearing grossly intact. No stridor. Actively draining what appears to be infection near the posterior molars. Likely some form of abscess. Mildly surrounding erythema. Uvula midline. No tongue edema. No floor the mouth swelling. Mild palpable submandibular lymph node on the left. Tolerating oral secretions. RESPIRATORY: No respiratory distress. C/V: Regular rate and rhythm. ABD: Abdomen is nondistended. EXT: No obvious deformity. SKIN: No rashes or lesions observed on exposed skin. NEURO: Alert and oriented. Limitations: no limitations Course Vital Signs 08/17/24 08/17/24 09:50 10:51 Temperature 98.4 F 98.1 F Pulse Rate 83 80 Respiratory 18 16 Rate Blood Pressure 119/83 114/82 O2 Sat by Pulse 97 98 Oximetry Medical Decision Making - Medical Decision Making Was pt. sent in by a medical professional or institution (, PA, DEVELOPMENT TECHNICIAN, urgent care, hospital, or fci...) When possible be specific @ -No Did you speak to anyone other than the patient for history (EMS, parent, family, police, friend...)? What history was obtained from this source @ -No Did you review nursing and triage notes (agree or disagree)? Why? @ -I reviewed and agree with nursing and triage notes Were old charts reviewed (outside hosp., previous admission, EMS record, old EKG, old radiological studies, urgent care reports/EKG's, fci records)? Report findings @ -No old charts were reviewed Differential Diagnosis (chest pain, altered mental status, abdominal pain women, abdominal pain men, vaginal bleeding, weakness, fever, dyspnea, syncope, headache, dizziness, GI bleed, back pain, seizure, CVA, palpatations, mental health, musculoskeletal)? @ -Dental abscess, tooth infection, cavity. This list is not all inclusive. EKG interpreted by me (3pts min.). @ -None done X-rays interpreted by me (1pt min.). @ -None done CT interpreted by me (1pt min.). @ -None done U/S interpreted by me (1pt. min.). @ -None done What testing was considered but not performed or refused? (CT, X-rays, U/S, labs)? Why? @ -None What meds were considered but not given or refused? Why? @ -None Did you discuss the management of the patient with other professionals (professionals i.e. , PA, DEVELOPMENT TECHNICIAN, lab, RT, psych nurse, perinatal social worker, beef killer, teacher, branch officer, pillowcase cleaner)? Give summary @ -No Was smoking cessation discussed for >3mins.? @ -No Was critical care preformed (if so, how long)? @ -No Were there social determinants of health that impacted care today? How? (Homelessness, low income, unemployed, alcoholism, drug addiction, tra nsportation, low edu. Level, literacy, decrease access to med. care, alf, rehab)? @ -No Was there de-escalation of care discussed even if they declined (Discuss DNR or withdrawal of care, Hospice)? DNR status @ -No What co-morbidities impacted this encounter? (DM, HTN, Smoking, COPD, CAD, Cancer, CVA, ARF, Chemo, Hep., AIDS, mental health diagnosis, sleep apnea, morbid obesity)? @ -None Was patient admitted / discharged? Hospital course, mention meds given and route, prescriptions, significant lab abnormalities, going to OR and other pertinent info. @ -Presents for what appears to be dental abscess. Patient has actively draining area near the posterior upper left molars. No obvious focal abscess present currently. Has had infections here previously. Patient will be started on clindamycin as well as given a dose of Decadron. Recommended Tylenol Motrin for pain control. Patient was in agreement this plan. Vital signs are within acceptable limits. No imaging or further workup is required at this time. Recommend follow-up with dentistry. I will provide the patient with a prescription for clindamycin. I instructed the patient to follow up with their PCP in the next 1-3 days.. I explained that the patient should return to the emergency department if they experience any worsening symptoms. Strict return precautions were discussed with the patient. The patient expressed understanding of these instructions. I answered all questions that the patient had. The patient was discharged home in good condition with their prescriptions and follow up information. Undiagnosed new problem with uncertain prognosis? @ -No Drug Therapy requiring intensive monitoring for toxicity (Heparin, Nitro, Insulin, Cardizem)? @ -No Were any procedures done? @ -No Diagnosis/symptom? @ -Dental infection Acute, or Chronic, or Acute on Chronic? @ -Acute Uncomplicated (without systemic symptoms) or Complicated (systemic symptoms)? @ -Uncomplicated Side effects of treatment? @ -No Exacerbation, Progression, or Severe Exacerbation? @ -No Poses a threat to life or bodily function? How? (Chest pain, [place], [place], pneumonia, PE, COPD, DKA, ARF, appy, cholecystitis, CVA, Diverticulitis, Homicidal, Suicidal, threat to staff... and all critical care pts) @ -Unlikely at this time Disposition Clinical Impression: Dental infection Disposition: HOME SELF-CARE Condition: Good Instructions (If sedation given, give patient instructions): Dental Abscess (ED) Prescriptions: clindamycin HCL 300 mg PO Q6HR 7 Days #28 capsule Is patient prescribed a controlled substance at d/c from ED?: No Referrals: [facility] [NON-STAFF] - 1-2 days None,Stated [Primary Care Provider] - 1-2 days Mumtaz Mcclain DDS [STAFF PHYSICIAN] - 1-2 days Forms: Area PCPs Time of Disposition: 10:27
[2024-08-17] MEDS: IBUPROFEN 800 MG TAB PO STA (10:44)
[2024-08-17] MEDS: ACETAMINOPHEN TAB 500 MG TAB PO STA (10:45)
[2024-08-17] MEDS: dexAMETHasone 4 MG TAB PO STA (10:46)
[2024-08-17] MEDS: CLINDAMYCIN 150 MG CAP PO STA (10:46)
[2024-08-17 10:52] VITALS: BP 114/82; PULSE 80; RESP 16; TEMP 98.1
== END 2024-08-17 10:52 | disposition home or self-care (01) ==
LOC: EC 09:39
DX: K04.7 Periapical abscess without sinus (principal); Z91.040 Latex allergy status; Z91.09 Other allergy status, other than to drugs and biological substances
CPT/HCPCS: 99283; J8540

== ENCOUNTER 2024-08-17 13:46 | Emergency (ER) | payer OTHER ==
[2024-08-17 13:51] VITALS: RESP 18
[2024-08-17] MEDS ORDERED: MAG HYDROX/AL HYDROX/SIMETH 30 ML CUP PO PRN (14:07)
[2024-08-17] MEDS: MAG HYDROX/AL HYDROX/SIMETH 30 ML CUP PO STA (14:16)
--- NOTE | 2024-08-17 14:49 | XR ---
EXAMINATION TYPE: XR chest 1V portable DATE OF EXAM: 08/17/2024 2:40 PM COMPARISON: 09/11/2019 CLINICAL INDICATION: Female, 24 years old with history of gerd/chest discomfort, , FINDINGS: The cardiomediastinal silhouette, aorta, and pulmonary vasculature are within normal limits. Lungs and pleural spaces are clear. IMPRESSION: No acute cardiopulmonary process. [facility], Workstation: [facility], 08/17/2024 2:47 PM
[2024-08-17 15:31] VITALS: BP 103/67; PULSE 79; TEMP 98.2
--- NOTE | 2024-08-17 15:34 | ED ---
General Adult HPI - General Chief complaint: Chest Pain Stated complaint: Recheck-Chest pain Time Seen by Provider: 08/17/24 13:58 Source: patient, RN notes reviewed, old records reviewed Limitations: no limitations - History of Present Illness Initial comments: Patient is a 24-year-old female presents as a reevaluation. I evaluated her earlier. Diagnosed with a dental infection and placed on antibiotics. States that she went home after eating beans soup prior to arrival and then had ravioli with tomato sauce and the combination of all of that caused her to begin to have burning throat discomfort as well as epigastric discomfort. Has a history of anxiety. Became anxious and came back with her mother for evaluation. Denies any nausea or vomiting. Denies diarrhea or constipation. Denies any shortness of breath or difficulty in breathing. No other acute complaints. Does have a history of acid reflux. Presents for further evaluation at this time. - Related Data Previous Rx's Medication Instructions Recorded Ibuprofen [Motrin] 800 mg PO Q8HR PRN #30 tab 07/05/22 Phenazopyridine [Pyridium] 200 mg PO TID PRN #6 tablet 07/05/22 Cephalexin [Keflex] 500 mg PO Q6HR #40 cap 07/18/22 Phenazopyridine [Pyridium] 100 mg PO TID #6 tablet 01/26/23 Sulfamethox-Tmp 800-160Mg [Bactrim 1 tab PO Q12HR 7 Days #14 tab 01/26/23 DS 800-160 mg] clindamycin HCL 300 mg PO Q6HR 7 Days #28 capsule 08/17/24 Allergies Allergy/AdvReac Type Severity Reaction Status Date / Time Latex, Natural Rubber Allergy Unknown Verified 08/17/24 13:49 smoke Allergy Dyspnea Uncoded 08/17/24 13:49 Review of Systems ROS Statement: Those systems with pertinent positive or pertinent negative responses have been documented in the HPI. Review of Systems: CONST: [Denies fever] EYES: [Denies blurry vision] ENT: [Denies nasal congestion] C/V: Endorses burning substernal and epigastric discomfort. RESP: [Denies shortness of breath] GI: [Denies abdominal pain] : [Denies dysuria] SKIN: [Denies rash.] MSK: [Denies joint pain.] NEURO: [Denies headache] ROS Other: All systems not noted in ROS Statement are negative. Past Medical History Additional Past Medical History / Comment(s): spinal bifida, History of Any Multi-Drug Resistant Organisms: None Reported Past Surgical History: Tonsillectomy Past Anesthesia/Blood Transfusion Reactions: No Reported Reaction Past Psychological History: No Psychological Hx Reported Smoking Status: Never smoker Past Alcohol Use History: Occasional Past Drug Use History: None Reported General Exam - General Exam Comments Initial Comments: General: Appears in no acute distress. HEAD: Normal with no signs of head trauma. EYES: EOMI. ENT: Hearing grossly intact. No stridor. Uvula is midline. Tongue is not swollen. No floor of the mouth swelling. RESPIRATORY: No respiratory distress. Clear breath sounds bilaterally. C/V: Regular rate and rhythm. S1 and S2 auscultated. ABD: Abdomen is nondistended. EXT: No obvious deformity. SKIN: No rashes or lesions observed on exposed skin. NEURO: Alert and oriented. Limitations: no limitations Course Vital Signs 08/17/24 13:47 Temperature 97.8 F Pulse Rate 85 Respiratory 18 Rate Blood Pressure 113/76 O2 Sat by Pulse 100 Oximetry Medical Decision Making - Medical Decision Making Was pt. sent in by a medical professional or institution (, PA, RESEARCH STUDY ASSISTANT, urgent care, hospital, or skilled nursing...) When possible be specific @ -No Did you speak to anyone other than the patient for history (EMS, parent, family, police, friend...)? What history was obtained from this source @ -No Did you review nursing and triage notes (agree or disagree)? Why? @ -I reviewed and agree with nursing and triage notes Were old charts reviewed (outside hosp., previous admission, EMS record, old EKG, old radiological studies, urgent care reports/EKG's, skilled nursing records)? Report findings @ -No old charts were reviewed Differential Diagnosis (chest pain, altered mental status, abdominal pain women, abdominal pain men, vaginal bleeding, weakness, fever, dyspnea, syncope, headache, dizziness, GI bleed, back pain, seizure, CVA, palpatations, mental health, musculoskeletal)? @ -Acid reflux, allergic reaction, medication reaction. This list is not all inclusive. EKG interpreted by me (3pts min.). @ -As above X-rays interpreted by me (1pt min.). @ -Chest x-ray shows no obvious acute cardiopulmonary process. CT interpreted by me (1pt min.). @ -None done U/S interpreted by me (1pt. min.). @ -None done What testing was considered but not performed or refused? (CT, X-rays, U/S, labs)? Why? @ -None What meds were considered but not given or refused? Why? @ -None Did you discuss the management of the patient with other professionals (professionals i.e. , PA, RESEARCH STUDY ASSISTANT, lab, RT, psych nurse, sr. social media & mobile manager, plastic joint maker, teacher, customs officer, complex case manager)? Give summary @ -No Was smoking cessation discussed for >3mins.? @ -No Was critical care preformed (if so, how long)? @ -No Were there social determinants of health that impacted care today? How? (Homelessness, low income, unemployed, alcoholism, drug addiction, transportation, low edu. Level, literacy, decrease access to med. care, usp, rehab)? @ -No Was there de-escalation of care discussed even if they declined (Discuss DNR or withdrawal of care, Hospice)? DNR status @ -No What co-morbidities impacted this encounter? (DM, HTN, Smoking, COPD, CAD, Cancer, CVA, ARF, Chemo, Hep., AIDS, mental health diagnosis, sleep apnea, morbid obesity)? @ -None Was patient admitted / discharged? Hospital course, mention meds given and route, prescriptions, significant lab abnormalities, going to OR and other pertinent info. @ -Based on the patient's presentation physical exam, presents emergency department complaining of acid reflux type pain after taking clindamycin and eating acidic foods earlier. I saw her earlier and returns over concern for p ossible allergic reaction to the medication. No nausea or vomiting. No rashes. No difficulty in breathing. No evidence of stridor. Tolerating oral secretions. No respiratory distress. I discussed with the patient and it is likely acid reflux. She does have a history of anxiety and patient's mother and patient both agree this is likely playing a role as well. Vitals are within acceptable limits. Screening EKG was obtained and showed no obvious acute cardiopulmonary process or ischemic findings. Chest x-ray shows no obvious acute cardiopulmonary process. I discussed results with the patient. She was feeling improved following Maalox. Recommended avoiding fried or spicy foods and taking her medication with food. Recommended obtaining Tums or Mylanta outpatient. She can return to the ER if any worsening symptoms. Patient was in agreement this plan. No concern for allergic reaction or anaphylactic reaction to the medication. No concern for cardiac etiology for the symptoms. I instructed the patient to follow up with their PCP in the next 1-3 days. I explained that the patient should return to the emergency department if they experience any worsening symptoms. Strict return precautions were discussed with the patient. The patient expressed understanding of these instructions. I answered all questions that the patient had. The patient was discharged home in good condition with their prescriptions and follow up information. Undiagnosed new problem with uncertain prognosis? @ -No Drug Therapy requiring intensive monitoring for toxicity (Heparin, Nitro, Insulin, Cardizem)? @ -No Were any procedures done? @ -No Diagnosis/symptom? @ -GERD Acute, or Chronic, or Acute on Chronic? @ -Acute Uncomplicated (without systemic symptoms) or Complicated (systemic symptoms)? @ -Uncomplicated Side effects of treatment? @ -No Exacerbation, Progression, or Severe Exacerbation? @ -No Poses a threat to life or bodily function? How? (Chest pain, [place], [place], pneumonia, PE, COPD, DKA, ARF, appy, cholecystitis, CVA, Diverticulitis, Homicidal, Suicidal, threat to staff... and all critical care pts) @ -Unlikely at this time - EKG Data -: EKG Interpreted by Me EKG Comments: 12-lead Electrocardiogram Interpretation Note EKG was reviewed and interpreted by myself. 12-lead ECG performed at 1055 is interpreted by me as revealing normal sinus rhythm at a rate of 89 beats per minute. [place] is normal. NM interval is 140 ms, QRS duration is 89 ms, QTc is 400 ms.. There were no ST or T wave abnormalities to suggest myocardial ischemia or injury. R wave progression across the precordium was satisfactory. By my interpretation this EKG is non-diagnostic for acute ischemia. Disposition Clinical Impression: GERD (gastroesophageal reflux disease) Disposition: HOME SELF-CARE Condition: Good Instructions (If sedation given, give patient instructions): GERD (Gastroesophageal Reflux Disease) (ED) Is patient prescribed a controlled substance at d/c from ED?: No Referrals: None,Stated [Primary Care Provider] - 1-2 days Time of Disposition: 15:34
== END 2024-08-17 15:42 | disposition home or self-care (01) ==
LOC: EC 13:46
DX: K21.9 Gastro-esophageal reflux disease without esophagitis (principal); Z91.040 Latex allergy status; Z77.22 Contact with and (suspected) exposure to environmental tobacco smoke (acute) (chronic)
CPT/HCPCS: 71045; 93005; 99285